=== PATIENT | female | born 1965 | race African-American/Black ===

== ENCOUNTER 2016-08-21 13:06 | Emergency (ER) | payer MEDICAID ==
[~2016-08-21] VITALS: Ht 165.1 cm; Wt 84.4 kg
[~2016-08-21 13:06] MED LIST: ADULT WAL-100 MG/5 M ORAL; ATARAX50 MG ORAL; AZITHROMYCIN250 MG ORAL; CYCLOBENZAPRINE10 MG ORAL; CYCLOBENZAPRINE10 MG PO; ELIMITE 5% CREA60 GM TOPIC; FERROUS SULFAT325 MG PO; IBUPROFEN600 MG ORAL; IBUPROFEN600 MG PO; IBUPROFEN800 MG PO; KENALOG IN ORABA1 EA APPLIC; NAPROXEN375 MG PO; NORCO 5-325 TA1 EACH ORAL; PROMETHAZINE-C118 M1 ORAL; SOMA350 MG PO; TRAMADOL HCL50 MG ORAL; VALIUM5 MG PO; VICODIN 5-5001 EACH PO
[2016-08-21 13:20] VITALS: BP 115/76
[2016-08-21] MEDS ORDERED: Ketorolac 30mg Inj IM ONE (13:45)
[2016-08-21] MEDS ORDERED: TRAMADOL HCL50 MG ORAL (14:17)
[2016-08-21] MEDS ORDERED: AMOXICILLIN500 MG ORAL (14:17)
[2016-08-21] MEDS ORDERED: GABAPENTIN300 MG ORAL (14:17)
[2016-08-21 14:47] VITALS: BP 114/76
[2016-08-21 14:48] VITALS: BP 114/76
--- NOTE | 2016-08-21 19:54 | Emergency Room Report ---
History of Present Illness General Chief Complaint: Pain Source: Patient Present Illness HPI The patient is a 51-year-old female presenting with right leg pain and sore throat. The patient states that she has a history of sciatica and this feels the same. The patient describes the pain as a sharp/tingling sensation which starts at the right but often travels down the back of the leg. No other radiating pain. Patient states pain is worse with bending over and walking. The patient has used [place] and soma at home which she states does not help. Patient has run out of these medications and is asking for refill.The patient denies any recent injuries or falls. The patient is also admitting to a sore throat and dry cough which began 2 days prior. The patient states that she is living with another woman who was diagnosed with tonsillitis. The patient denies any other symptoms including fever, chills, nausea, vomiting , chest pain, shortness of breath, leg swelling Allergies: Coded Allergies: No Known Allergies (Verified , 12/11/11) Patient History Past Medical History: see triage record Pertinent Family History: none Last Menstrual Period: menopause Reviewed Nursing Documentation: PMH: Agreed, PSxH: Agreed Nursing Documentation-PMH Past Medical History: No History, Except For Hx Diabetes: Yes Review of Systems All Other Systems: negative except mentioned in HPI Physical Exam Vital Signs Date Time Temp Pulse Resp B/P Pulse Ox O2 Delivery O2 Flow Rate FiO2 08/21/16 13:20 98.1 85 16 115/76 98 08/21/16 13:20 Room Air Sp02 EP Interpretation: reviewed, normal General Appearance: no apparent distress, alert, GCS 15, non-toxic Head: normocephalic, atraumatic Eyes: bilateral eye PERRL, bilateral eye normal inspection ENT: hearing grossly normal, no angioedema, normal voice, uvula midline, moist mucus membranes, pharyngeal erythema, tonsillar exudate Neck: full range of motion, supple/symm/no masses Respiratory: chest non-tender, lungs clear, normal breath sounds, no wheezing, speaking full sentences Gastrointestinal: normal bowel sounds, non tender, soft, non-distended, no guarding, no rebound Rectal: deferred Genitourinary: normal inspection, no CVA tenderness Musculoskeletal: back normal, gait/station normal, normal range of motion, tender - TTP over R buttock Neurologic: alert, oriented x3, responsive, motor strength/tone normal, sensory intact, speech normal Psychiatric: judgement/insight normal, memory normal, mood/affect normal, no suicidal/homicidal ideation Reflexes: 3+ bicep (R), 3+ bicep (L), 3+ tricep (R), 3+ tricep (L), 3+ knee (R) , 3+ knee (L) Skin: normal color, no rash, warm/dry, well hydrated Lymphatic: no adenopathy Medical Decision Making PA Attestation Dr. Roblero is my supervising physician. Patient management was discussed with my supervising physician Diagnostic Impression: Primary Impression: Sciatica of right side Additional Impression: Pharyngitis, acute ER Course The patient is a 50-year-old female with a history of sciatica presenting with right leg pain and sore throat Differential diagnosis considered: Sciatica, muscle strain, contusion, fracture Differential diagnosis include but not limited to pharyngitis, sinusitis, AOM, bronchitis, PNA Vitals are within normal limits. No apparent distress. HEENT: There is bilateral tonsillar erythema with exudate. Uvula midline. There is tenderness to palpation to the R buttock which radiates inferiorly. Sensation intact to light touch. Normal gait. Skin warm and dry. No rashes Otherwise exam is unremarkable Patient is given Toradol and Tylenol for pain in the emergency department The patient will be discharged home with a prescription for Gabapentin, tramadol , and amoxicillin. The patient is advised she needs to followup with pain management for further care. ER precautions are given Last Vital Signs Date Time Temp Pulse Resp B/P Pulse Ox O2 Delivery O2 Flow Rate FiO2 08/21/16 14:48 98.1 81 16 114/76 99 Room Air Status: improved Disposition: HOME, SELF-CARE Condition: Improved Scripts Gabapentin* (GABAPENTIN*) 300 Mg Capsule 300 MG ORAL THREE TIMES A DAY, #30 CAP 0 Refills Prov: TERZIAN,AMY P.A. 08/21/16 Amoxicillin* (AMOXIL*) 500 Mg Capsule 500 MG ORAL Q12HR, #20 CAP Prov: TERZIAN,AMY P.A. 08/21/16 Tramadol Hcl* (ULTRAM*) 50 Mg Tablet 50 MG ORAL Q6H Y for For Pain, #15 TAB 0 Refills Prov: TERZIAN,AMY P.A. 08/21/16 Patient Instructions: Sciatica, Pharyngitis Additional Instructions: I discussed my findings with the patient. All questions and concerns have been answered. Treatment and medication compliance have been addressed. I advised the patient that they need to follow up with PMD in 3-5 days. Return to ED if pain remains or worsens, cough worsens or remains, you notice blood in your sputum, you notice wheezing, you experience a fever, or if needed for any reason. Patient verbalized understanding of discharge instructions. The patient is advised that she needs to see pain management for further care. AMY CHAND Aug 21, 2016 19:54
== END 2016-08-21 14:49 | disposition home or self-care (01) ==
LOC: EMR 13:55
DX: J02.9 Acute pharyngitis, unspecified (principal); M54.31 Sciatica, right side; E11.9 Type 2 diabetes mellitus without complications
CPT/HCPCS: 96372; 99284; J1885

== ENCOUNTER 2017-01-06 08:56 | Emergency (ER) | payer MEDICAID ==
[~2017-01-06] VITALS: Ht 165.1 cm; Wt 82.6 kg
[~2017-01-06 08:56] MED LIST changes: +AMOXICILLIN500 MG ORAL; +GABAPENTIN300 MG ORAL
[2017-01-06 09:05] VITALS: BP 125/86
--- NOTE | 2017-01-06 09:38 | Emergency Room Report ---
History of Present Illness General Chief Complaint: Flu Like Symptoms Source: Patient Present Illness HPI The patient presents with several days of upper respiratory symptomatology. She 's been coughing. The cough kept her awake last night. She denies any wheezes. She does not smoke. In addition she had diarrhea yesterday that was brown in color. She denies passing blood. Her last period was December 10 and normal for her. She has total body pain. She also complains of a slight headache. Her right ear is also tender. She also has tenderness in her R ear. No fever, NV, sore throat, rashes, headache, extremity swelling or pain. Daughter ill with URI/otitis media and conjunctival inflammation. Allergies: Coded Allergies: No Known Allergies (Verified , 12/11/11) Patient History Past Medical History: see triage record Social History: Denies: smoking Social History Narrative with daughter - patient care - developmentally disabled Reviewed Nursing Documentation: PMH: Agreed, PSxH: Agreed Nursing Documentation-PMH Hx Diabetes: Yes Review of Systems All Other Systems: negative except mentioned in HPI Physical Exam Vital Signs Date Time Temp Pulse Resp B/P Pulse Ox O2 Delivery O2 Flow Rate FiO2 01/06/17 09:00 97.5 82 20 125/86 100 Room Air Sp02 EP Interpretation: reviewed, normal General Appearance: well appearing, no apparent distress Head: normocephalic, atraumatic Eyes: bilateral eye PERRL, bilateral eye normal inspection ENT: hearing grossly normal, normal pharynx, normal voice, TMs + canals normal , moist mucus membranes Neck: full range of motion, supple Respiratory: no respiratory distress, speaking full sentences Cardiovascular #1: regular rate, rhythm Cardiovascular #2: 2+ radial (R) Gastrointestinal: normal inspection, normal bowel sounds, non tender Musculoskeletal: digits/nails normal, gait/station normal, normal range of motion, no calf tenderness Neurologic: alert, oriented x3, normal gait, grossly normal Psychiatric: mood/affect normal Skin: no rash Medical Decision Making Diagnostic Impression: Primary Impression: URI, acute Additional Impression: Diarrhea Qualified Codes: R19.7 - Diarrhea, unspecified ER Course Patient presents with cough and diarrhea. Ddx: gastroenteritis, viral syndrome. URI. Exam excludes OM. Not toxic and in no resp distress. Will treat symptoms. Antibiotics not indicated. Patient stable for outpatient observation and treatment. Last Vital Signs Date Time Temp Pulse Resp B/P Pulse Ox O2 Delivery O2 Flow Rate FiO2 01/06/17 09:56 97.5 82 20 125/86 100 Room Air Status: improved Disposition: HOME, SELF-CARE Condition: Improved Scripts Chlorpheniramine Maleate (Chlorpheniramine Maleate) 4 Mg Tablet 4 MG PO Q6HR Y for congestion, #14 TAB Prov: Ariel Stewart M.D. 01/06/17 Ibuprofen* (MOTRIN*) 600 Mg Tablet 600 MG ORAL Q6H Y for For Pain, #20 TAB Prov: Ariel Stewart M.D. 01/06/17 Promethazine HCl/Codeine (Prometh-Codein 6.25-10 mg/5 ml) 5 Ml Syrup 5 ML PO Q6HR, #90 ML Prov: Ariel Stewart M.D. 01/06/17 Referrals: NOT CHOSEN DIANA/,REFERRING (PCP) Ariel Stewart M.D. Jan 06, 2017 09:38
[2017-01-06] MEDS ORDERED: PROMETH-CODEIN 65 ML PO (09:40)
[2017-01-06] MEDS ORDERED: IBUPROFEN600 MG ORAL (09:40)
[2017-01-06] MEDS ORDERED: CHLORPHENIRAMINE4 M1 PO (09:46)
[2017-01-06 09:56] VITALS: BP 125/86
== END 2017-01-06 10:01 | disposition home or self-care (01) ==
LOC: EMR 09:28
DX: J06.9 Acute upper respiratory infection, unspecified (principal); R19.7 Diarrhea, unspecified; E11.9 Type 2 diabetes mellitus without complications
CPT/HCPCS: 99284

== ENCOUNTER 2018-02-27 08:58 | Emergency (ER) | payer MEDICAID ==
[~2018-02-27] VITALS: Ht 165.1 cm; Wt 52.2 kg
[~2018-02-27 08:58] MED LIST changes: +CHLORPHENIRAMINE4 M1 PO; +PROMETH-CODEIN 65 ML PO
[2018-02-27 09:14] VITALS: BP 113/75
[2018-02-27] MEDS ORDERED: Fluorescein Strips LEFT EYE ONE (09:45)
[2018-02-27] MEDS ORDERED: Tetracaine 0.5% Opth 4ml Soln LEFT EYE ONE (09:45)
--- NOTE | 2018-02-27 10:29 | Emergency Room Report ---
History of Present Illness General Chief Complaint: Eye Problems Source: Patient Present Illness [facility] Immanuel presents with L eye redness. First noted Monday. Some change in the vision. No fevers, crusting, discharge, pain. No headache. No h/o glaucoma ( or in family). No known trauma. No coughing or vomiting. Low back pain. Chronic problem. Somewhat worsened recently. Diabetes Allergies: Coded Allergies: No Known Allergies (Verified , 12/11/11) Patient History Past Medical History: see triage record Social History: Reports: smoking Social History Narrative cares for others at home Now: No - unk Reviewed Nursing Documentation: PMH: Agreed; PSxH: Agreed Nursing Documentation-PMH Hx Diabetes: Yes Review of Systems All Other Systems: negative except mentioned in HPI Physical Exam Vital Signs Date Time Temp Pulse Resp B/P (MAP) Pulse Ox O2 Delivery O2 Flow Rate FiO2 02/27/18 09:05 98.3 100 18 113/75 96 Room Air 98.2 Sp02 EP Interpretation: reviewed, normal General Appearance: well appearing, no apparent distress, GCS 15 Head: normocephalic, atraumatic Eyes: left eye fluoroscene uptake - none, left eye other - subconjunctival hemorrhage - no foreign body. VAs documented and reviewed.; bilateral eye PERRL , bilateral eye EOMI ENT: hearing grossly normal, normal voice Neck: full range of motion, supple Respiratory: no respiratory distress, speaking full sentences Gastrointestinal: normal inspection, normal bowel sounds Genitourinary: no CVA tenderness Musculoskeletal: digits/nails normal, gait/station normal, no calf tenderness, pelvis stable, other - lumbar musclular tenderness Neurologic: alert, normal gait, grossly normal Psychiatric: mood/affect normal Skin: no rash Medical Decision Making Diagnostic Impression: Primary Impression: Subconjunctival hemorrhage of left eye Additional Impressions: Iritis Back Pain Diabetes Qualified Codes: E11.9 - Type 2 diabetes mellitus without complications ER Course Patient presents with redness of sclera L. DDX: SC hemorrhage, corneal abrasion , iritis amongst others. Exam excludes viral or bacterial infection. Min change in vision. Also c/o slight inc in chronic back pain. Also as diabetic, check glucose. Back pain - no imaging or studies indicated. Slit lamp exam with min haziness, no corneal abrasions. Consider with exam, unnoticed trauma with min iritis. Glucose 159. Advised need for close follow up. Patient stable for outpatient observation and treatment. Last Vital Signs Date Time Temp Pulse Resp B/P (MAP) Pulse Ox O2 Delivery O2 Flow Rate FiO2 02/27/18 10:48 98.2 100 18 113/75 96 Room Air 98.2 Status: unchanged Disposition: HOME, SELF-CARE Condition: Stable Scripts Sulfacetamide Sodium (BLEPH-10) 5 Ml Drops 2 DROP OP Q6HR, #10 ML Prov: Areil Stewart M.D. 02/27/18 Ketorolac Tromethamine/Pf (ACUVAIL 0.45% OPHTH SOLUTION) 1 Each Droperette 1 DRP OP BID, #5 ML Prov: Areil Stewart M.D. 02/27/18 Ibuprofen* (MOTRIN*) 600 Mg Tablet 600 MG ORAL Q6H PRN for For Pain, #20 TAB Prov: Ariel Stewart M.D. 02/27/18 Referrals: NON PHYSICIAN (PCP) Ariel Stewart M.D. Feb 27, 2018 10:29
[2018-02-27] MEDS ORDERED: IBUPROFEN600 MG ORAL (10:33)
[2018-02-27] MEDS ORDERED: BLEPH-105 ML OP (10:33)
[2018-02-27] MEDS ORDERED: ACUVAIL 0.45%1 EACH OP (10:33)
[2018-02-27 10:48] VITALS: BP 113/75
== END 2018-02-27 10:49 | disposition home or self-care (01) ==
LOC: EMR 09:41
DX: H11.32 Conjunctival hemorrhage, left eye (principal); H20.9 Unspecified iridocyclitis; M54.9 Dorsalgia, unspecified; E11.9 Type 2 diabetes mellitus without complications; F17.200 Nicotine dependence, unspecified, uncomplicated
CPT/HCPCS: 99283

== ENCOUNTER 2019-06-13 17:50 | Emergency (ER) | payer MEDICAID ==
[~2019-06-13] VITALS: Ht 165.1 cm; Wt 77.6 kg
[~2019-06-13 17:50] MED LIST changes: +ACUVAIL 0.45%1 EACH OP; +BLEPH-105 ML OP
[2019-06-13 18:35] VITALS: BP 108/76
--- NOTE | 2019-06-13 18:35 | NUR ---
ED Nurse Note: Patient arrived to ED by car from home complaining of left-sided lower back pain that began Monday. She was lifting moderately heavy things around the house and felt her back muscle pull out, shooting pain down her left leg. This morning, after waking, she felt like her entire back and left leg were thrown out. Pain is 8/10, shooting pain. She went to [place] on Monday and has been taking 1-2 [place] 10 per day that she was Rx'd by them. Patient stable, resting in bed.
[2019-06-13] MEDS ORDERED: Ketorolac 30mg Inj IM ONE (19:00)
--- NOTE | 2019-06-13 19:00 | NUR ---
ED Nurse Note: Received report from Juan F. Pt alert and oriented. No SOB. VSS. Family member at bedside.
--- NOTE | 2019-06-13 19:11 | Emergency Room Report ---
History of Present Illness General Chief Complaint: Lower Back Pain or Injury Source: Medical Record Present Illness HPI 54-year-old female presents to the emergency department complaining of 10/10 in severity low back pain, paraspinal radiating across, no midline pain x5 days. She denies trauma or fall. onset after pulling heavy object. Denies fevers, chills, recent spinal procedures or surgeries. pt. had change in insurance and can no longer see her pain management doctor. Pt. reports she was just seen at [facility] a few days ago and was discharged with rx for qty 2 Meloxicam. Denies changes to her symptoms since previous evaluation at [facility]. Pt. reports she has had no relief of her pain, and her insurance only covered qty 1 Meloxicam. Denies saddle anesthesia/numbness/ tingling or loss of sensation or gross motor movements of the extremities, incontinence of bowel or bladder. Denies CP, Palpitations, LOC, AMS, dizziness, Changes in Vision, weakness or a sudden severe headache. Allergies: Coded Allergies: No Known Allergies (Verified , 12/11/11) Patient History Past Medical History: see triage record Past Surgical History: none Pertinent Family History: none Reviewed Nursing Documentation: PMH: Agreed; PSxH: Agreed Nursing Documentation-PMH Past Medical History: No History, Except For Hx Diabetes: Yes Review of Systems All Other Systems: negative except mentioned in HPI Physical Exam Vital Signs Date Time Temp Pulse Resp B/P (MAP) Pulse Ox O2 Delivery O2 Flow Rate FiO2 06/13/19 18:32 98.6 102 16 108/76 (87) 94 Room Air Sp02 EP Interpretation: reviewed, normal General Appearance: alert, GCS 15, non-toxic, mild distress Head: normocephalic, atraumatic Eyes: bilateral eye normal inspection, bilateral eye PERRL ENT: hearing grossly normal, normal voice Neck: full range of motion, no bony tend Respiratory: lungs clear, normal breath sounds, speaking full sentences Cardiovascular #1: regular rate, rhythm Gastrointestinal: non tender, soft Genitourinary: normal inspection, no CVA tenderness Musculoskeletal: normal range of motion, gait/station normal, tender - Tenderness to palpation to paraspinal muscles of the lower back without midline tenderness., other - no localized midline spinous process ttp or palpable step off. pt. ambulatory on her own with slow pace and no quick movements. Neurologic: alert, motor strength/tone normal, DTRs symmetric, oriented x3, sensory intact, responsive, speech normal, grossly normal Psychiatric: judgement/insight normal Skin: no rash, normal color, normal inspection Lymphatic: no adenopathy Medical Decision Making PA Attestation Dr. Treviño Is my supervising Physician whom patient management has been discussed with. Diagnostic Impression: Primary Impression: Low back pain Qualified Codes: M54.41 - Lumbago with sciatica, right side Additional Impression: Lumbosacral strain Qualified Codes: S39.012A - Strain of muscle, fascia and tendon of lower back , initial encounter ER Course 54-year-old female presents to the emergency department complaining of 10/10 in severity low back pain, paraspinal radiating across, no midline pain x5 days. She denies trauma or fall. onset after pulling heavy object. Denies fevers, chills, recent spinal procedures or surgeries. pt. had change in insurance and can no longer see her pain management doctor. Pt. reports she was just seen at [facility] a few days ago and was discharged with rx for qty 2 Meloxicam. Denies changes to her symptoms since previous evaluation at [facility]. Pt. reports she has had no relief of her pain, and her insurance only covered qty 1 Meloxicam. Denies saddle anesthesia/numbness/ tingling or loss of sensation or gross motor movements of the extremities, incontinence of bowel or bladder. Denies CP, Palpitations, LOC, AMS, dizziness, Changes in Vision, weakness or a sudden severe headache. Ddx considered: epidural abscess, fracture, sprain/strain, meningitis, spinal chord injury, sciatica, cauda equina, Pyelonephritis, renal calculi just to name a few. Vital signs reviewed and are WNL during ED visit. Pt. is afebrile with no signs of infection No new symptoms, and denies recent trauma. No saddle anesthesia noted, Pt. denies incontinence Neurovascular is intact ROM is limited due to pain * Tenderness to palpation to paraspinal muscles of the lower back without midline tenderness. *Pt. describes pain today as moderate and radiates across the lower back. ORDERS: -UA: WNL INTERVENTIONS: - 30mg IM Toradol -Soma PO -Lidoderm TP. -- Pt. reports soma provided little relief. D/W Pt. that for further pain management is it recommended to consult PCP or a Chronic Pain management doctor. A provider who can safely prescribe controlled substances with close follow up. DISCHARGE: At this time pt. is stable for d/c to home. Will provide printed patient care instructions, and any necessary prescriptions. Care plan and follow up instructions have been discussed with the patient prior to discharge. Labs Test 06/13/19 20:00 Urine Color Pale yellow Urine Appearance Clear Urine pH 5 (4.5-8.0) Urine Specific [place] 1.015 (1.005-1.035) Urine Protein Negative (NEGATIVE) Urine Glucose (UA) 4+ (NEGATIVE) Urine Ketones Negative (NEGATIVE) Urine Blood Negative (NEGATIVE) Urine Nitrite Negative (NEGATIVE) Urine Bilirubin Negative (NEGATIVE) Urine Urobilinogen Normal MG/DL (0.0-1.0) Urine Leukocyte Esterase 1+ (NEGATIVE) Urine RBC 0-2 /HPF (0 - 2) Urine WBC 2-4 /HPF (0 - 2) Urine Squamous Epithelial Cells Moderate /LPF (NONE/OCC) Urine Bacteria Few /HPF (NONE) Last Vital Signs Date Time Temp Pulse Resp B/P (MAP) Pulse Ox O2 Delivery O2 Flow Rate FiO2 06/13/19 18:35 98.6 76 16 108/76 94 Room Air Disposition: HOME, SELF-CARE Condition: Stable Scripts Lidocaine Patch* (Lidoderm Patch*) 1 Each Adh..patch 1 PATCH TOPIC DAILY, #30 PATCH 0 Refills Patch(es) may remain in place for up to 12 hours in any 24-hour period. Prov: Eleonora Johnson 06/13/19 Methocarbamol* (ROBAXIN-500*) 500 Mg Tablet 500 MG ORAL TID, #10 TAB 0 Refills Prov: Eleonora Johnson 06/13/19 Hydrocodone/Acetaminophen (Hydrocodon-Acetaminophn 10-325) 1 Each Tablet 1 TAB ORAL Q8H PRN for For Pain, #15 TAB 0 Refills Prov: Eleonora Johnson 06/13/19 Patient Instructions: Lumbosacral Strain, Back Pain, Adult Additional Instructions: ~~~ An emergent medical condition has not been identified based on this patients presentation, exam and any necessary testing/imaging. The patient is determined to be stable for outpatient follow-up and management of symptoms by a primary care provider.~~~ Take medications as directed. *!* Do not drink alcohol, drive, or operate heavy machinery while taking [place] or Robaxin as both medications are known to be impairing substances this may cause drowsiness. These medications are also highly addictive. Only take as prescribed. *!* Follow up with a Primary Care Provider in 3-5 days, even if your symptoms have resolved. for Medication Management and further Evaluation of your symptoms as an outpatient. Return sooner to ED if new symptoms occur, or current symptoms become worse. - Please note that this Emergency Department Report was dictated using [employer]physical anthropologist technology software, occasionally this can lead to erroneous entry secondary to interpretation by the dictation equipment. Eleonora Johnson Jun 13, 2019 19:11
--- NOTE | 2019-06-13 20:00 | NUR ---
ED Nurse Note: Urine specimen collected and sent to lab
[2019-06-13 20:49] LABS: APPEARANCE,URINE CLEAR; BILIRUBIN, URINE NEGATIVE (NEGATIVE); COLOR,URINE PALE YELLOW; GLUCOSE, URINE (UA) 4+ (NEGATIVE); KETONES,URINE NEGATIVE (NEGATIVE); LEUKOCYTE ESTERASE ,URINE 1+ (NEGATIVE); NITRITE,URINE NEGATIVE (NEGATIVE); PH,URINE 5 (4.5-8.0); PROTEIN,URINE NEGATIVE (NEGATIVE); UROBILINOGEN,URINE NORMAL MG/DL (0.0-1.0)
[2019-06-13] MEDS ORDERED: ROBAXIN-500MG ORAL (21:09)
[2019-06-13] MEDS ORDERED: LIDODERM700 M1 TOPIC (21:09)
[2019-06-13] MEDS ORDERED: NORCO 10/3251 EA ORAL (21:09)
[2019-06-13 21:22] VITALS: BP 110/73
--- NOTE | 2019-06-13 21:22 | NUR ---
ED Nurse Note: Pt cleared by ERMDr for discharge. DC instructions/prescription was given and explained to pt and verbalized understanding of teachings. All medical deviecs such as ID band removed. Pt is AAO x4, ambulatory and left with all personal belongings. Accompanied by s/o.
== END 2019-06-13 21:22 | disposition home or self-care (01) ==
LOC: EMR 18:40
DX: M54.41 Lumbago with sciatica, right side (principal); S39.012A Strain of muscle, fascia and tendon of lower back, initial encounter; X50.0XXA Overexertion from strenuous movement or load, initial encounter; Y93.89 Activity, other specified; Y92.9 Unspecified place or not applicable; E11.9 Type 2 diabetes mellitus without complications
CPT/HCPCS: 81003; 96372; J1885; Z7502; 99283